=== PATIENT | female | born 1955 | race Asian ===

== ENCOUNTER 2020-09-29 07:17 | Day surgery (SDC) | payer OTHER, SELFPAY ==
[~2020-09-29] VITALS: Ht 162.6 cm; Wt 59.0 kg
[2020-09-29] MEDS ORDERED: fentaNYL CITRATE/PF 100 MCG/2 ML AMP IVP ONE (09:30)
[2020-09-29] MEDS ORDERED: DESFLURANE 15 MIN GAS INH ONE (09:30)
[2020-09-29] MEDS ORDERED: PROPOFOL 200MG/ 20ML VIAL (DIPRIVAN) IV ONE (09:30)
[2020-09-29] MEDS ORDERED: LR 1,000 ML IV.SOLN IV ONE (09:30)
[2020-09-29] MEDS ORDERED: KETOROLAC TROMETHAMINE 30 MG VIAL IVP ONE (09:30)
[2020-09-29] MEDS ORDERED: DEXAMETHASONE SOD PHOSPHATE 4 MG/ML VIAL IVP ONE (09:30)
[2020-09-29] MEDS ORDERED: cefTRIAXone 1 GM VIAL IV ONE (09:30)
[2020-09-29] MEDS ORDERED: NS IRRIG SOLN 1000 ML IR ONE (09:30)
[2020-09-29] MEDS ORDERED: LIDOCAINE 1% 10 MG/ML, 20 ML MDV INJ ONE (09:30)
[2020-09-29] MEDS ORDERED: ACETAMINOPHEN I.V. 1000 MG 100 ML IV PRN (10:15)
[2020-09-29] MEDS ORDERED: HYDROmorphone 1 INJ. 1 MG/ML CARTRIDGE IVP ONE (11:15)
[2020-09-29] MEDS ORDERED: HYDROmorphone 1 INJ. 1 MG/ML CARTRIDGE ONE (11:17)
[2020-09-29 12:48] VITALS: BP_SYST 115
== END 2020-09-29 13:11 | disposition home or self-care (01) ==
LOC: SMU 07:17 → SDS 07:17
PROVIDERS: ATTEND Orthopaedic Surgery
DX: M15.1 Heberden's nodes (with arthropathy) (principal); F41.9 Anxiety disorder, unspecified; I10 Essential (primary) hypertension; Z20.828 Contact with and (suspected) exposure to other viral communicable diseases
CPT/HCPCS: 26860; 76000; J0696; J1100; J1170; J1885; J2001; J2704; J3010; J7120; U0003